=== PATIENT | female | born 1995 ===

== ENCOUNTER 2024-01-10 09:25 | Emergency (ER) | payer BC ==
[2024-01-10 10:20] LABS: BASOPHILS ABSOLUTE AUTO 0.05 K/uL (0.00-0.20); BASOPHILS PERCENT AUTO 0.5 % (0.0-1.0); EOSINOPHILS ABSOLUTE AUTO 0.08 K/uL (0.00-0.45); EOSINOPHILS PERCENT AUTO 0.7 % (0.0-6.0); HEMATOCRIT 35.3 % (37.0-47.0); HEMOGLOBIN 11.2 g/dL (12.0-16.0); IMMATURE GRAN PERCENT AUTO 0.9 % (0.0-0.4); LYMPHOCYTES ABSOLUTE AUTO 1.54 K/uL (1.00-4.80); LYMPHOCYTES PERCENT AUTO 14.3 % (24.0-44.0); MEAN CORPUSCULAR HEMOGLOBIN 22.6 pg (28.0-32.0); MEAN CORPUSCULAR HGB CONC 31.7 g/dL (32.0-36.0); MEAN CORPUSCULAR VOLUME 71.2 fL (83.0-99.0); MEAN PLATELET VOLUME 10.2 fL (9.4-12.3); MONOCYTES ABSOLUTE AUTO 0.56 K/uL (0.00-0.80); MONOCYTES PERCENT AUTO 5.2 % (0.0-8.0); NEUTROPHILS ABSOLUTE AUTO 8.43 K/uL (1.80-7.70); NEUTROPHILS PERCENT AUTO 78.4 % (41.0-71.0); PLATELET COUNT,PLT 296 K/uL (150-400); RED BLOOD CELL COUNT 4.96 M/uL (4.10-5.30); WHITE BLOOD CELL COUNT,WBC 10.76 K/uL (3.9-11.3)
[2024-01-10 10:28] LABS: BASE EXCESS VENOUS -3.2 (-2.0-3.0); BICARBONATE,VENOUS 23 mEQ/mL (22-28); PCO2 VENOUS 43 mmHG (41-51); PH,VENOUS 7.33 (7.31-7.41)
[2024-01-10 10:30] LABS: PO2 VENOUS < 30 mmHG (80-100)
[2024-01-10] MEDS: Sodium Chloride 0.9% 1,000 ML IV ONE (10:34)
[2024-01-10] MEDS: Alum Hydro/Mag Hydro/Simeth XS 15 ML, Metoclopramide 5 MG, Lidocaine 2% 5 ML PO ONE (10:34)
[2024-01-10] MEDS: Ondansetron 4 MG/2 ML SDV IVPUSH ONE (10:34)
[2024-01-10] MEDS: Ketorolac 30 MG/ML SDV IVPUSH ONE (10:34)
[2024-01-10 10:36] LABS: BILIRUBIN,URINE NEGATIVE (NEGATIVE); COLOR,URINE YELLOW; GLUCOSE,URINE 500 mg/dL (NEGATIVE); KETONES,URINE NEGATIVE (NEGATIVE); LEUKOCYTE ESTERASE,URINE NEGATIVE (NEGATIVE); NITRITE,URINE NEGATIVE (NEGATIVE); OCCULT BLOOD,URINE TRACE-INTACT (NEGATIVE); PROTEIN,URINE 100 mg/dL (NEGATIVE); UROBILINOGEN,URINE 0.2 EU/dL (<2.0)
[2024-01-10 10:42] LABS: A/G RATIO 0.5 (0.9-1.6); ALBUMIN 2.5 g/dL (3.4-5.0); BILIRUBIN TOTAL 0.5 mg/dL (0.2-1.0); CALCIUM 9.2 mg/dL (8.5-10.1); CARBON DIOXIDE,CO2 22.4 mmol/L (21.0-32.0); CREATININE 0.7 mg/dL (0.6-1.0); EST CRCL DRUG DOSING (CG) 106.7 mL/min; POTASSIUM,K 4.4 mmol/L (3.5-5.1); PROTEIN TOTAL,TP 7.9 g/dL (6.4-8.2); TSH ULTRASENSITIVE 1.47 uIU/mL (0.36-3.74)
[2024-01-10 11:02] LABS: APPEARANCE,URINE HAZY; BACTERIA,URINE FEW (NEGATIVE); MUCUS,URINE LIGHT (NONE-MOD); SQUAMOUS EPITHELIAL CELLS,UR MODERATE; WBC,URINE 0-2 (0-5/HPF)
[2024-01-10 11:03] LABS: CORONAVIRUS COVID-19 NAA NEGATIVE (NEGATIVE); INFLUENZA A NAA NEGATIVE (NEGATIVE); INFLUENZA B NAA NEGATIVE (NEGATIVE)
[2024-01-10] MEDS ORDERED: Glucagon,Human Recombinant 1 MG Vial IM PRN (11:51)
[2024-01-10] MEDS ORDERED: 50% Dextrose in Water 50 ML Syringe IVPUSH PRN (11:51)
[2024-01-10 12:11] LABS: HEMOGLOBIN A1C 13.3 %
[2024-01-10] MEDS: Insulin Regular, Human 100 Units/ML 10 ML Vial SUBCUT ONE (12:14)
[2024-01-10] MEDS: HYDROmorphone 2 MG/ML Syringe IVPUSH ONE (12:17)
[2024-01-10] MEDS: Lidocaine 2% Viscous Solution 15 ML UD PO ONE (12:38)
== END 2024-01-10 12:47 | disposition home or self-care (01) ==
LOC: MW.ED 09:25
DX: E10.65 Type 1 diabetes mellitus with hyperglycemia (principal); R10.13 Epigastric pain; H92.03 Otalgia, bilateral; Z91.148 Patient's other noncompliance with medication regimen for other reason; E78.00 Pure hypercholesterolemia, unspecified; Z75.8 Other problems related to medical facilities and other health care; Z88.5 Allergy status to narcotic agent; Z79.899 Other long term (current) drug therapy; Z79.4 Long term (current) use of insulin
CPT/HCPCS: 0240U; 36415; 74176; 80053; 81001; 81025; 82009; 82803; 82947; 83036; 83690; 84443; 85025; 86308; 96361; 96374; 96375; 99284; A9270; J1885; J2405; J7030; J1815-GY